=== PATIENT | female | born 1970 | race Caucasian/White ===

== ENCOUNTER 2017-09-15 17:21 | Inpatient (IN) | payer OTHER ==
[~2017-09-15] VITALS: Ht 160 cm; Wt 54.8 kg
--- NOTE | ~2017-09-15 | HC ---
[facility] [place] [address] CONSULTATION Name: FAHEEM DEGROOTECALYCIA De La Cruz Room #: 455-P [facility] IN ..#: [id number] Admission: 09/15/17 Attend Phys: Beau Smith MD Discharge: Date of : 66 Report #: [id number] THIS REPORT FOR: //name// CC: NO PCP Beau Smith DATE OF SERVICE: 09/16/2017 Infectious Diseases Consultation REASON FOR CONSULTATION: I was asked to evaluate concerning persistent diarrhea. HISTORY OF PRESENT ILLNESS: The patient was a 47-year-old who reported of approximately 3 weeks ago she had the diagnosis of upper respiratory tract infection with otitis media and an infected sebaceous cyst to her right neck. She was treated with approximately 2 to 3 weeks of Augmentin. Following this, she developed thrush and was given fluconazole. Since being on this drug regimen, she has developed diarrhea from 2 to 4 stools a day. She has been anorexic. She has been fatigued. Denies any fever, chills or sweats. Stool, reports as intermittent [id number] with no blood or mucus. She has had no abdominal pain, has been passing a fair amount of gas and has an occasional cramp with this. There has been no nausea or vomiting. No fever, chills or sweats. Denies any travel. She is disabled, previously worked as an [employer], has underlying history of anxiety, migraines, and seizure. She has had no travel outside the [place]. ALLERGIES: CARBAMAZEPINE, CODEINE, IODINE, LAMICTAL, ATIVAN, MORPHINE, NORTRIPTYLINE, BUSPAR, PAXIL. MEDICATIONS: On presentation included Trileptal, Xanax, Inderal, Tylenol, aspirin, Fioricet, Flonase, Zyrtec, albuterol. PAST MEDICAL HISTORY: Seizures, bipolar disorder, migraine headaches, fibromyalgia, hepatitis C, hemorrhagic stroke in 2007, chronic sinusitis with recurring pneumonia, hysterectomy. FAMILY HISTORY: Noncontributory. SOCIAL HISTORY: Smoker of cigarettes. No significant alcohol intake or street drugs. REVIEW OF SYSTEMS: CONSTITUTIONAL: As noted above. [facility] [address] [place] [address] CONSULTATION Name: ZANERADHAMES Room #: 455-P [facility] IN [facility].#: [id number] Admission: 09/15/17 Attend Phys: Beau Smith MD Discharge: Date of : 66 Report #: [id number] EYES: Unremarkable. HEENT: Intermittent headache with no oral lesions currently. Thrush has resolved. RESPIRATORY: Negative. CARDIOVASCULAR: Negative. GASTROINTESTINAL: As above. GENITOURINARY: Negative. MUSCULOSKELETAL: Negative. SKIN: Negative. NEUROLOGIC: Has had generalized weakness and mild dizzy sensation when up. PSYCHIATRIC: Has a history of anxiety and depression, which she feels are stable. ENDOCRINE: Negative. PHYSICAL EXAMINATION: VITAL SIGNS: Afebrile and hemodynamically stable. GENERAL: The patient was alert and cooperative and pleasant, in no acute distress. HEENT: Unremarkable. MOUTH: Unremarkable. NECK: Supple. A small sebaceous cyst was evident in the right submandibular region. No adenopathy. No thyromegaly. LUNGS: Clear. Chest wall unremarkable. HEART: Regular, without murmur, gallop or rub. ABDOMEN: Soft, nontender, no hepatosplenomegaly or mass appreciated. RECTAL: Not performed. EXTREMITIES: Unremarkable. NEUROLOGIC: Nonfocal. Mood normal. LABORATORY STUDIES: Initial sodium was 119, now up to 134, potassium 3.7, bicarbonate 24, creatinine 0.6. Liver function test normal. Hemoglobin 14, white count 11, platelet count [id number]. Differential unremarkable. Urinalysis unremarkable. Stool for ova and parasite are pending. Stool for C. difficile PCR pending. IMPRESSION: Recent antibiotic therapy for infected cyst and otitis has resulted in change in bowel function and chronic diarrhea over the last several weeks. Along with this has been the development of hyponatremia that has been corrected over the last 24 hours. Cause of the patient's diarrhea is yet to be determined. She has had no foul odor to the stool nor does she have any other systemic toxicity that would suggest underlying infectious cause. She states over the last 12 hours that her stools have subsided and her appetite has improved. Nausea resolved. Anxiety and depression with bipolar disorder, controlled. Seizure disorder, controlled. No evidence of ongoing migraine headaches. [address] [address] CONSULTATION Name: RADHAMES DEGROOT Dorothy Room #: 455-P [facility] IN M.R.#: [id number] Admission: 09/15/17 Attend Phys: Beau Smith MD Discharge: Date of : 66 Report #: [id number] RECOMMENDATIONS: Considering her white count now is normal, no fever or systemic toxicity. I would recommend observation off antibiotics. We will obtain stool studies to include bacteria culture, C. difficile, and ova and parasite to include Giardia and cryptosporidium. Rehydrate as you are doing. Advance diet slowly. We will see how she feels within the next 24 hours to determine if any further workup will be necessary. Encouraging that her sodium has corrected. <ELECTRONICALLY SIGNED> By: Sushil Brown MD 09/17/17 [id number] Sushil Brown MD /nt
[~2017-09-15 17:21] MED LIST: APAP500 PO; ASPIR 8181 MG; AUGMENTIN 875875 MG PO; BACTRIM DS TAB1 EACH PO; BLEPH-105 ML; BUTALB-APAP-CA1 EACH; CEFDINIR300 MG; CLONAZEPAM 1 MG1 M1 PO; DESYREL150 MG PO; DIPHENHIST50 MG PO; DOXYCYCLINE 10100 MG; FLEXERIL PO; FLONASE 0.05%50 MCG NASAL; IMITREX; INDERAL40 MG PO; LAMICTAL XR50 MG PO; LASIX 40 MG TAB40 M1 PO; LITHIUM CARBON300 M3 PO; MECLIZINE HCL12.5 MG PO; MEDROLDOSEPACK PO; NORCO 5-325 TA1 EACH PO; NORCO 7.5-3251 EACH PO; PHENERGAN 25 MG25 M1 PO; POTASSIUM CHLORIDE PO; SINGULAIR 10 MG10 M1 PO; TEGRETOL XR200 MG; TRILEPTAL600 MG PO; VENTOLIN HFA INH8 GM INH; XANAX 0.5 MG0.5 MG PO; ZOFRAN4 MG PO; ZOFRAN8 MG PO; ZYRTEC10 MG PO
[2017-09-15 17:24] VITALS: BP 170/89
[2017-09-15 19:06] LABS: ABSOLUTE NEUTROPHILS 5.8 thou/uL (1.4-8.2); BASOPHILS 0.4 % (0.0-2.0); EOSINOPHILS 0.6 % (0.0-3.0); HEMATOCRIT 41.5 % (37.0-47.0); HEMOGLOBIN 14.4 gm/dL (12.0-15.0); LYMPHOCYTES 37.2 % (24.0-44.0); MCH 32.9 pg (26.0-34.0); MCHC 34.6 g/dL (28.0-37.0); MCV 95.2 fL (80.0-100.0); PLATELET COUNT 241 thou/uL (150-400); POLYS 52.8 % (36.0-66.0); RBC 4.36 mil/uL (4.20-5.00); RDW 12.9 % (10.5-14.5)
[2017-09-15 19:13] LABS: ANION GAP 6 mmol/L (7-16); BUN 3 mg/dL (7-18); CALCIUM 8.4 mg/dL (8.5-10.1); CHLORIDE 89 mmol/L (98-107); CO2 24 mmol/L (21-32); CREATININE 0.6 mg/dL (0.6-1.0); GLUCOSE 90 mg/dL (74-106); POTASSIUM 3.7 mmol/L (3.5-5.1)
[2017-09-15 19:17] LABS: SODIUM 119 mmol/L (136-145)
[2017-09-15 19:19] LABS: ALBUMIN 3.9 g/dL (3.4-5.0); DIRECT BILIRUBIN < 0.1 mg/dL (<0.1-0.3); SGOT 16 U/L (15-37); SGPT 27 U/L (30-65); TOTAL BILIRUBIN 0.2 mg/dL (<0.1-1.0); TOTAL PROTEIN 7.4 g/dL (6.4-8.2)
[2017-09-15 20:49] LABS: URINE BILIRUBIN NEGATIVE (Negative); URINE BLOOD NEGATIVE (Negative); URINE CLARITY CLEAR; URINE COLOR YELLOW; URINE GLUCOSE-RANDOM* NEGATIVE (Negative); URINE KETONES NEGATIVE (Negative); URINE LEUKOCYTES-REFLEX NEGATIVE (Negative); URINE NITRITE-REFLEX NEGATIVE (Negative); URINE PROTEIN (DIPSTICK) NEGATIVE (Negative); URINE UROBILINOGEN 0.2 E.U./dl (0.2-1.0)
[2017-09-15 20:53] LABS: URINE CREATININE-RANDOM* 57.1 mg/dL
[2017-09-15 21:06] VITALS: BP 122/74
[2017-09-15 21:52] VITALS: BP 131/72
[2017-09-15 22:23] LABS: AMP/METHAMP Negative (Negative); BARBITURATES POSITIVE (Negative); BENZODIAZEPINES POSITIVE (Negative); COCAINE Negative (Negative); METHADONE Negative (Negative); OPIATES Negative (Negative); PCP Negative (Negative)
[2017-09-16 05:40] VITALS: BP 92/44
[2017-09-16 05:52] LABS: ABSOLUTE NEUTROPHILS 2.4 thou/uL (1.4-8.2); BASOPHILS 0.5 % (0.0-2.0); EOSINOPHILS 0.8 % (0.0-3.0); HEMATOCRIT 38.1 % (37.0-47.0); HEMOGLOBIN 13.3 gm/dL (12.0-15.0); LYMPHOCYTES 51.6 % (24.0-44.0); MCH 33.6 pg (26.0-34.0); MCHC 34.9 g/dL (28.0-37.0); MCV 96.2 fL (80.0-100.0); MONOCYTES 9.9 % (1.0-8.0); PLATELET COUNT 239 thou/uL (150-400); POLYS 37.2 % (36.0-66.0); RBC 3.96 mil/uL (4.20-5.00); RDW 12.9 % (10.5-14.5); WBC 6.5 thou/uL (4.0-11.0)
[2017-09-16 06:10] LABS: CREATININE 0.5 mg/dL (0.6-1.0); MAGNESIUM 1.7 mg/dL (1.8-2.4); POTASSIUM 3.8 mmol/L (3.5-5.1)
[2017-09-16 07:40] VITALS: BP 120/64
[2017-09-16 12:34] VITALS: BP 120/64
[2017-09-16 15:30] VITALS: BP 116/68
[2017-09-16 19:49] VITALS: BP 132/70
[2017-09-17 01:46] LABS: AMP/METHAMP Negative (Negative); BARBITURATES POSITIVE (Negative); BENZODIAZEPINES POSITIVE (Negative); COCAINE Negative (Negative); METHADONE Negative (Negative); OPIATES Negative (Negative); PCP Negative (Negative)
[2017-09-17 03:04] VITALS: BP 117/70
[2017-09-17 07:30] VITALS: BP 142/62
[2017-09-17 15:39] LABS: HEMATOCRIT 38.1 % (37.0-47.0); HEMOGLOBIN 13.2 gm/dL (12.0-15.0); MCH 33.5 pg (26.0-34.0); MCHC 34.7 g/dL (28.0-37.0); MCV 96.4 fL (80.0-100.0); PLATELET COUNT 251 thou/uL (150-400); RBC 3.95 mil/uL (4.20-5.00); RDW 13.4 % (10.5-14.5); WBC 8.1 thou/uL (4.0-11.0)
[2017-09-17 15:54] VITALS: BP 143/77
[2017-09-17 15:55] LABS: ALBUMIN 3.6 g/dL (3.4-5.0); CALCIUM 8.1 mg/dL (8.5-10.1); CREATININE 0.7 mg/dL (0.6-1.0); MAGNESIUM 1.7 mg/dL (1.8-2.4); POTASSIUM 3.8 mmol/L (3.5-5.1); TOTAL BILIRUBIN 0.1 mg/dL (<0.1-1.0); TOTAL PROTEIN 7.1 g/dL (6.4-8.2)
[2017-09-17 17:03] LABS: ABSOLUTE NEUTROPHILS 3.1 thou/uL (1.4-8.2); ANISOCYTOSIS 1+; POLYCHROMASIA OCCASIONAL
[2017-09-17 17:17] VITALS: BP 143/77
== END 2017-09-17 17:55 | disposition home or self-care (01) | DRG 641 ==
LOC: ER 17:21 → 4W 19:32 → EROBS 19:32 → 4W 21:10 → ENTRNSPT 09-17 17:39 → 4W 09-17 17:55
PROVIDERS: Emergency Medicine; Hospitalist; Nurse Practitioner
DX: E87.1 Hypo-osmolality and hyponatremia (principal); F31.9 Bipolar disorder, unspecified; F17.210 Nicotine dependence, cigarettes, uncomplicated; F41.9 Anxiety disorder, unspecified; J30.2 Other seasonal allergic rhinitis; Z66 Do not resuscitate; E86.1 Hypovolemia; G43.909 Migraine, unspecified, not intractable, without status migrainosus; Z86.19 Personal history of other infectious and parasitic diseases; Z90.710 Acquired absence of both cervix and uterus; Z88.8 Allergy status to other drugs, medicaments and biological substances; Z88.6 Allergy status to analgesic agent; Z91.041 Radiographic dye allergy status; Z86.73 Personal history of transient ischemic attack (TIA), and cerebral infarction without residual deficits; Z79.899 Other long term (current) drug therapy
CPT/HCPCS: 10040